=== PATIENT | male | born 1980 | race Caucasian/White ===

== ENCOUNTER 2024-09-28 09:04 | Inpatient (IN) ==
[2024-09-28] MEDS ORDERED: VANCOMYCIN CONSULT ACTIVE PRN (09:22)
--- NOTE | 2024-09-28 09:38 | Emergency Department Note ---
History of Present Illness General Chief complaint: Abdominal Pain Stated complaint: ABD PAIN, TREMORS, ELV HEART RATE, SLIGHT TEMP Time Seen by Provider: 09/28/24 09:12 History of Present Illness Maximum Pain Intensity: 10 This is a 43-year-old male who presents to the emergency department via private vehicle accompanied by 2 corrections officers with complaints of "abdominal infection". I also reviewed the accompanying documentation from the medical [facility]. The patient states that he received an injection into the abdomen on September 21 which was Sublocade. He points to the abdominal wall soft tissues as location. Patient notes that following that he has noted some redness, swelling and pain to the lower abdomen. He states he was started on oral antibiotics, specifically Bactrim as of yesterday. He notes worsening symptoms now to include fever, increased heart rate and feeling unwell. No chest pain or shortness of breath. Patient has history of penicillin allergy causing a rash/hives. Patient notes he had acetaminophen earlier today around 7:30 AM. Home Medications Medication Instructions Recorded Confirmed Type gabapentin 600 mg tablet 600 mg PO TID 09/28/24 09/28/24 History mirtazapine 30 mg tablet 30 mg PO HS 09/28/24 09/28/24 History Allergies Allergy/AdvReac Type Severity Reaction Status Date / Time Penicillins Allergy Severe Hives Unverified 09/28/24 12:26 Past Med/Surg History Problem List (Updated 09/28/24 @ 16:03 by Ernesto Rincon PA-C) Opioid use disorder Sepsis (Acute) Abdominal wall abscess (Acute) Social History Smoking Status: Never smoker Preferred Language: Tamaz[place] Feels Safe at Home: Yes Review of Systems A total of 10 systems reviewed and were otherwise negative Physical Exam Vital Signs Vital Signs - 24 hr 09/28/24 09:08 09/28/24 10:06 09/28/24 10:06 Temperature 37.1 C Temperature Source Temporal Artery Scan Pulse Rate 142 H 116 H Pulse Rate [Apical] 117 H Respiratory Rate 18 19 24 Respiratory Effort / Characteristics Non-Labored Spontaneous Respiratory Depth Normal Blood Pressure 141/87 H Blood Pressure [Left Arm] 125/88 Blood Pressure Mean 105 Blood Pressure Mean [Left Arm] 100 Blood Pressure Position Sitting Pulse Oximetry 95 88 L 88 L Oxygen Delivery Method Room Air Room Air Room Air Oxygen Flow Rate Sepsis Recent Fever Within 48 Hours No Sepsis New/Unexplained Change in Mental Status No Sepsis Action Taken by Nursing No Action Required 09/28/24 10:26 09/28/24 10:28 09/28/24 10:36 Temperature 38.8 C H Temperature Source Oral Pulse Rate 109 H Pulse Rate [Apical] 106 H 109 H Respiratory Rate 14 19 Respiratory Effort / Characteristics Respiratory Depth Blood Pressure Blood Pressure [Left Arm] 130/82 131/88 Blood Pressure Mean Blood Pressure Mean [Left Arm] 98 102 Blood Pressure Position Pulse Oximetry 98 97 Oxygen Delivery Method Nasal Cannula Nasal Cannula Oxygen Flow Rate 2 2 Sepsis Recent Fever Within 48 Hours Sepsis New/Unexplained Change in Mental Status Sepsis Action Taken by Nursing 09/28/24 11:03 09/28/24 11:48 09/28/24 12:05 Temperature Temperature Source Pulse Rate Pulse Rate [Apical] 110 H 108 H 105 H Respiratory Rate 16 15 20 Respiratory Effort / Characteristics Respiratory Depth Blood Pressure Blood Pressure [Left Arm] 117/83 122/84 138/75 Blood Pressure Mean Blood Pressure Mean [Left Arm] 94 96 96 Blood Pressure Position Pulse Oximetry 97 96 97 Oxygen Delivery Method Nasal Cannula Nasal Cannula Nasal Cannula Oxygen Flow Rate 2 2 2 Sepsis Recent Fever Within 48 Hours Sepsis New/Unexplained Change in Mental Status Sepsis Action Taken by Nursing 09/28/24 12:53 09/28/24 13:04 09/28/24 14:03 Temperature Temperature Source Pulse Rate Pulse Rate [Apical] 104 H 102 H 93 H Respiratory Rate 25 H 25 H 17 Respiratory Effort / Characteristics Respiratory Depth Blood Pressure Blood Pressure [Left Arm] 119/71 115/73 109/67 Blood Pressure Mean Blood Pressure Mean [Left Arm] 87 87 81 Blood Pressure Position Pulse Oximetry 95 97 96 Oxygen Delivery Method Nasal Cannula Nasal Cannula Nasal Cannula Oxygen Flow Rate 2 2 2 Sepsis Recent Fever Within 48 Hours Sepsis New/Unexplained Change in Mental Status Sepsis Action Taken by Nursing 09/28/24 14:37 09/28/24 15:00 09/28/24 15:30 Temperature Temperature Source Pulse Rate 94 H Pulse Rate [Apical] 97 H 99 H Respiratory Rate 18 18 Respiratory Effort / Characteristics Respiratory Depth Blood Pressure Blood Pressure [Left Arm] 109/67 119/74 Blood Pressure Mean Blood Pressure Mean [Left Arm] 81 89 Blood Pressure Position Pulse Oximetry 97 97 Oxygen Delivery Method Room Air Room Air Oxygen Flow Rate Sepsis Recent Fever Within 48 Hours Sepsis New/Unexplained Change in Mental Status Sepsis Action Taken by Nursing VITAL SIGNS - Vital signs and nursing notes were reviewed. Tachycardic, mildly hypoxic, otherwise stable. GENERAL -43-year-old male appearing his stated age who is in no acute distress. Communicates well with provider and answers questions appropriately. SKIN -erythema noted to the anterior abdominal wall particularly inferior to the umbilicus and periumbilical with associated induration of the abdomen with mild fluctuance noted. No guarding or rigidity however the area is tender. Purple skin marking pen noted to the abdomen with erythema extending beyond these areas. HEAD - NC/AT. EYES - PERRL with EOMI bilaterally. Sclera anicteric. EARS - No deformities of external structures noted on gross examination bilaterally. NOSE - No epistaxis or purulent drainage noted. MOUTH/OROPHARYNX - Without perioral cyanosis. NECK - Neck with FROM. No nuchal rigidity. LUNGS - Chest wall symmetric without accessory muscle use, intercostals retractions, or central cyanosis. Normal vesicular breath sounds CTA B/L. No wheezes, rales, or rhonchi appreciated. CARDIAC -tachycardic ABDOMEN - Abdominal contour normal without pulsations or visible masses. Skin as above. BS normoactive all four quadrants. No hepatosplenomegaly, or ascites noted. EXTREMITIES - No clubbing or peripheral cyanosis. +5/5 strength noted in UE/LE bilaterally. NEUROLOGIC - Cranial nerves grossly intact. PSYCH -alert, oriented and pleasant on exam Course Administered Medications Discontinued Medications Hydromorphone HCl (Hydromorphone Inj 1 Mg/Ml Syringe) 1 mg IV NOW STA Stop: 09/28/24 10:58 Last Admin: 09/28/24 11:14 Dose: 1 mg Documented By: JANE Hydromorphone HCl (Hydromorphone Inj 0.5 Mg/0.5 Ml Syr) 0.5 mg IV NOW STA Stop: 09/28/24 15:39 Last Admin: 09/28/24 15:43 Dose: 0.5 mg Documented By: HAYLEE Sodium Chloride (Nss) 500 mls @ 427 mls/hr IV .Q1H11M BLADE Stop: 09/28/24 10:40 Last Infusion: 09/28/24 11:16 Dose: Infused Documented By: Admin: 09/28/24 11:13 Dose: 427 mls/hr Documented By: JANE Sodium Chloride (Nss) 1,000 mls @ 999 mls/hr IV .Q1H1M BLADE Stop: 09/28/24 11:30 Last Infusion: 09/28/24 12:24 Dose: Infused Documented By: Admin: 09/28/24 11:14 Dose: 999 mls/hr Documented By: Infusion: 09/28/24 11:14 Dose: Infused Documented By: Admin: 09/28/24 10:03 Dose: 999 mls/hr Documented By: JANE Vancomycin HCl 1,500 mg/ (Sodium Chloride) 530 mls @ 200 mls/hr IV NOW ONE Stop: 09/28/24 12:00 Last Infusion: 09/28/24 13:12 Dose: Infused Documented By: Admin: 09/28/24 10:27 Dose: 200 mls/hr Documented By: Infusion: 09/28/24 10:27 Dose: Infused Documented By: Admin: 09/28/24 10:10 Dose: 200 mls/hr Documented By: JANE Cefepime HCl (Maxipime 2000mg) 2,000 mg in 20 mls @ 5 mls/min IV NOW STA; Protocol Stop: 09/28/24 10:00 Last Admin: 09/28/24 10:27 Dose: 5 mls/min Documented By: JANE Acetaminophen (Ofirmev) 1,000 mg in 100 mls @ 400 mls/hr IV NOW STA Stop: 09/28/24 11:07 Last Admin: 09/28/24 12:24 Dose: Not Given Documented By: JANE Linezolid (Zyvox) 600 mg in 300 mls @ 300 mls/hr IV NOW STA Stop: 09/28/24 11:57 Last Infusion: 09/28/24 14:03 Dose: Infused Documented By: Admin: 09/28/24 12:22 Dose: 300 mls/hr Documented By: ARUN Metronidazole (Flagyl) 500 mg in 100 mls @ 100 mls/hr IV NOW STA Stop: 09/28/24 13:27 Last Infusion: 09/28/24 14:03 Dose: Infused Documented By: Admin: 09/28/24 12:54 Dose: 100 mls/hr Documented By: AVM Ioversol (Optiray 320 100ml) 93 ml IV ONCE ONE Stop: 09/28/24 10:48 Last Admin: 09/28/24 10:47 Dose: 93 ml Documented By: DIMITRIS Critical Care Time I have personally spent about 60 minutes of critical care time in the direct management of this patient. This includes bedside care, interpretation of diagnostic studies, and testing, discussion with consultants, patient, and family members, and other required patient management activities. This 60 minutes is in excess of all separately billable procedures. Medical Decision Making Laboratory Data 09/28/24 09:59 09/28/24 09:59 Lab Results 09/28/24 09/28/24 09/28/24 Range/Units 09:52 09:59 11:04 WBC 26.39 H (4.8-10.8) K/ul RBC 4.16 L (4.70-6.10) M/uL Hgb 13.1 L (14.0-18.0) g/dl Hct 38.5 L (42.0-52.0) % MCV 92.5 (80.0-100.0) fL MCH 31.5 (25.0-34.0) pg MCHC 34.0 (32.0-36.0) g/dL RDW Std Deviation 40.6 (36.4-46.3) fL RDW Coeff of [place] 12.0 (11.5-14.5) % Plt Count 284 (130-400) K/uL MPV 9.8 (9.4-12.4) fL Immature Gran % (Auto) 0.7 % Neut % (Auto) 86.8 % Lymph % (Auto) 3.4 % [place] % (Auto) 8.5 % Eos % (Auto) 0.3 % Baso % (Auto) 0.3 % Neut # (Auto) 22.92 H (1.40-6.50) K/uL Lymph # (Auto) 0.89 L (1.20-3.40) K/uL [place] # (Auto) 2.23 H (0.11-0.59) K/uL Eos # (Auto) 0.07 (0.00-0.50) K/uL Baso # (Auto) 0.09 (0.00-0.20) K/uL Immature Gran # (Auto) 0.19 (0.01-0.20) K/uL Sodium 134 L (136-145) mmol/L Potassium 4.0 (3.5-5.1) mmol/L Chloride 101 (98-107) mmol/L Carbon Dioxide 27 (21-32) mmol/L Anion Gap 6 (3-11) BUN 12 (6-23) mg/dl Creatinine 1.40 (0.6-1.4) mg/dl Est Cr Clr Drug Dosing 73.1 ml/min eGFR 63.17 BUN/Creatinine Ratio 8.6 L (10-20) Glucose 122 H (70-99(Fasting)) mg/dl POC Glucose (70-99) mg/dl Lactate 1.2 (0.4-2.0) mmol/L Calcium 9.6 (8.6-10.3) mg/dl Magnesium 1.8 (1.7-2.4) mg/dl Total Bilirubin 0.4 (0.2-1.0) mg/dl Direct Bilirubin 0.1 (0-0.2) mg/dl AST 20 (13-39) U/L ALT 20 (7-52) U/L Alkaline Phosphatase 58 (34-104) U/L Troponin I High Sens 13.0 (0-20) pg/ml C-Reactive Protein 25.57 H (0-0.5) mg/dl Total Protein 7.7 (6.0-8.3) gm/dl Albumin 4.1 (3.4-5.0) gm/dl Procalcitonin 1.94 H (0-0.5) ng/ml Urine Color Yellow Urine Appearance Clear (Clear) Urine pH 8.0 H (4.5-7.5) Ur Specific [place] 1.015 (1.000-1.030) Urine Protein Trace H (Negative) Urine Glucose (UA) Negative (Negative) Urine Ketones Negative (Negative) Urine Blood Negative (Negative) Urine Nitrite Negative (Negative) Urine Bilirubin Negative (Negative) Urine Urobilinogen Negative (Negative) Ur Leukocyte Esterase Negative (Negative) Urine WBC (Auto) 0-5 (0-5) /hpf Urine RBC (Auto) 0-2 (0-2) /hpf U Hyaline Cast (Auto) 0-2 (0-2) /lpf U Epithel Cells (Auto) 0-2 (0-2) /hpf Urine Bacteria (Auto) None Seen (None Seen) Adenovirus (PCR) Not Detected (NotDetected) B. pertussis DNA (PCR) Not Detected (NotDetected) B.parapertussis DNA PCR Not Detected (NotDetected) C. pneumoniae DNA (PCR) Not Detected (NotDetected) Coronavirus OC43 (PCR) Not Detected (NotDetected) Coronavirus HKU1 (PCR) Not Detected (NotDetected) Coronavirus 229E (PCR) Not Detected (NotDetected) SARS-CoV-2 (PCR) Not Detected (NotDetected) Coronavirus NL63 (PCR) Not Detected (NotDetected) Human Metapneumovir PCR Not Detected (NotDetected) Influenza Type A (PCR) Not Detected (NotDetected) Influenza Type B (PCR) Not Detected (NotDetected) M. pneumoniae (PCR) Not Detected (NotDetected) Parainfluenza 1 (PCR) Not Detected (NotDetected) Parainfluenza 2 (PCR) Not Detected (NotDetected) Parainfluenza 3 (PCR) Not Detected (NotDetected) Parainfluenza 4 (PCR) Not Detected (NotDetected) RSV (PCR) Not Detected (NotDetected) Entero/Rhino (PCR) Not Detected (NotDetected) 09/28/24 09/28/24 Range/Units 13:02 14:07 WBC (4.8-10.8) K/ul RBC (4.70-6.10) M/uL Hgb (14.0-18.0) g/dl Hct (42.0-52.0) % MCV (80.0-100.0) fL MCH (25.0-34.0) pg MCHC (32.0-36.0) g/dL RDW Std Deviation (36.4-46.3) fL RDW Coeff of [place] (11.5-14.5) % Plt Count (130-400) K/uL MPV (9.4-12.4) fL Immature Gran % (Auto) % Neut % (Auto) % Lymph % (Auto) % [place] % (Auto) % Eos % (Auto) % Baso % (Auto) % Neut # (Auto) (1.40-6.50) K/uL Lymph # (Auto) (1.20-3.40) K/uL [place] # (Auto) (0.11-0.59) K/uL Eos # (Auto) (0.00-0.50) K/uL Baso # (Auto) (0.00-0.20) K/uL Immature Gran # (Auto) (0.01-0.20) K/uL Sodium (136-145) mmol/L Potassium (3.5-5.1) mmol/L Chloride (98-107) mmol/L Carbon Dioxide (21-32) mmol/L Anion Gap (3-11) BUN (6-23) mg/dl Creatinine (0.6-1.4) mg/dl Est Cr Clr Drug Dosing ml/min eGFR BUN/Creatinine Ratio (10-20) Glucose (70-99(Fasting)) mg/dl POC Glucose 367 H* 112 H (70-99) mg/dl Lactate (0.4-2.0) mmol/L Calcium (8.6-10.3) mg/dl Magnesium (1.7-2.4) mg/dl Total Bilirubin (0.2-1.0) mg/dl Direct Bilirubin (0-0.2) mg/dl AST (13-39) U/L ALT (7-52) U/L Alkaline Phosphatase (34-104) U/L Troponin I High Sens (0-20) pg/ml C-Reactive Protein (0-0.5) mg/dl Total Protein (6.0-8.3) gm/dl Albumin (3.4-5.0) gm/dl Procalcitonin (0-0.5) ng/ml Urine Color Urine Appearance (Clear) Urine pH (4.5-7.5) Ur Specific [place] (1.000-1.030) Urine Protein (Negative) Urine Glucose (UA) (Negative) Urine Ketones (Negative) Urine Blood (Negative) Urine Nitrite (Negative) Urine Bilirubin (Negative) Urine Urobilinogen (Negative) Ur Leukocyte Esterase (Negative) Urine WBC (Auto) (0-5) /hpf Urine RBC (Auto) (0-2) /hpf U Hyaline Cast (Auto) (0-2) /lpf U Epithel Cells (Auto) (0-2) /hpf Urine Bacteria (Auto) (None Seen) Adenovirus (PCR) (NotDetected) B. pertussis DNA (PCR) (NotDetected) B.parapertussis DNA PCR (NotDetected) C. pneumoniae DNA (PCR) (NotDetected) Coronavirus OC43 (PCR) (NotDetected) Coronavirus HKU1 (PCR) (NotDetected) Coronavirus 229E (PCR) (NotDetected) SARS-CoV-2 (PCR) (NotDetected) Coronavirus NL63 (PCR) (NotDetected) Human Metapneumovir PCR (NotDetected) Influenza Type A (PCR) (NotDetected) Influenza Type B (PCR) (NotDetected) M. pneumoniae (PCR) (NotDetected) Parainfluenza 1 (PCR) (NotDetected) Parainfluenza 2 (PCR) (NotDetected) Parainfluenza 3 (PCR) (NotDetected) Parainfluenza 4 (PCR) (NotDetected) RSV (PCR) (NotDetected) Entero/Rhino (PCR) (NotDetected) Imaging Data Radiologist's Impression: Chest X-Ray 09/28/24 09:23 XR chest 1V portable CLINICAL HISTORY: Sepsis. COMPARISON STUDY: No previous studies for comparison. FINDINGS: Lung volumes are normal. Lungs are clear. There is no pneumothorax or pleural effusion. Cardiac size is normal. Mediastinal contours are normal. There is no evidence for pulmonary edema. IMPRESSION: No acute cardiopulmonary findings. ACT 112: Negative or not required by law. Electronically signed by: Kennedy Pacheco M.D. 09/28/2024 9:39 AM Abdomen/Pelvis CT 09/28/24 09:26 CT OF THE ABDOMEN AND PELVIS WITH CONTRAST CLINICAL HISTORY: Abdominal wall infection following injection. COMPARISON STUDY: KUB August 22, 2008. TECHNIQUE: Following IV administration of 93 mL of Optiray, axial images of the abdomen and pelvis were obtained from the lung bases to the proximal femurs. Images were reviewed in the axial, sagittal, and coronal planes. IV contrast was administered without complication. Automated exposure control was utilized for the study. A dose lowering technique was utilized adhering to the principles of ALARA. CT DOSE: 873.12 mGy.cm FINDINGS: Lung bases are unremarkable. No pneumatosis, free air or portal gas is present. A few subcentimeter hypodense hepatic lesions are likely benign. There is mild biliary ductal dilatation. The pancreatic duct is prominent. No pancreatic lesion is identified. 1.8 cm hypodense splenic lesion is likely benign. There is a 4.7 cm right lower pole renal cyst. Subcentimeter left renal lesion favors a cyst as well. There is no hydronephrosis. There is no evidence for a bowel obstruction. A moderate amount pf stool is present. Extensive inflammation within the subcutaneous tissues extending to the fascia of the left abdominal wall is noted. This involves the majority of the left anterior abdominal wall. There is associated skin thickening and multiple small pockets of fluid within the subcutaneous tissues of the left anterior abdominal wall. Several locules of subcutaneous gas are present. No drainable fluid collection is present. Left rectus abdominis appears unremarkable. No intramuscular fluid collection is identified. Major vasculature is patent. IMPRESSION: 1. Findings consistent with an extensive infectious process of the left anterior abdominal wall with subcutaneous stranding and fluid and skin thickening which extends to the underlying fascia consistent with cellulitis. Multiple small pockets of fluid within the subcutaneous tissues with several locules of gas. This gas could be related to recent injection. However, necrotizing fasciitis could appear similar. Surgical consultation is recommended. 2. Mild biliary ductal dilatation, a nonspecific finding which could be correlated with liver function tests. 3. No bowel obstruction. Moderate amount of stool. ACT 112: Negative or not required by law. Electronically signed by: Kennedy Pacheco M.D. 09/28/2024 11:05 AM MDM Narrative Patient was seen and evaluated as above in room C02. Review was performed of triage nursing notes and vital signs. Patient presents to us today accompanied by 2 corrections officers for evaluation of abdominal wall infection. The patient is quite ill, tachycardic in the 140s on arrival and hypoxic 88%. Patient appears septic. EKG reveals sinus tachycardia at a rate of 117 bpm. QTc 451. QRS 80. No ST elevation on this rhythm tracing. IV access was immediately established. 30/kg IV fluids ordered in addition to broad-spectrum IV antibiotics. Labs reveal leukocytosis 26.39. Anemia noted with hemoglobin of 13.1. Hyponatremia 134. Hyperglycemia 122. Troponin returned within normal range. Procalcitonin is elevated with a normal lactate. Blood culture pending. CRP 25. Urinalysis does not suggest infection. BioFire panel negative. CT scan of the abdomen/pelvis was obtained and does reveal extensive infectious process of the left anterior abdominal wall with subcutaneous stranding and fluid and skin thickening which extends to underlying fascia consistent with cellulitis. I discussed this with the general surgeon, Dr. Kohler came to evaluate the patient. Patient will go to the operative suite for further evaluation and management. I also discussed this with the hospitalist service, Dr. Marlow as well as the risk consulting treasury director Dr. Rodriguez. Please refer to further documentation regarding his stay. Analgesia was ordered during the patient's stay and vital signs were closely monitored. Patient was febrile and I did order acetaminophen but held off as the patient did have this just prior to coming in today. GCS: 15 In the evaluation and treatment of this patient the following differential diagnoses were entertained: Necrotizing fasciitis, cellulitis, appendicitis, abscess, among others Impression & Plan Abdominal wall abscess, Sepsis Discharge Plan Visit Data Chief Complaint: Abdominal Pain Stated Complaint: ABD PAIN, TREMORS, ELV HEART RATE, SLIGHT TEMP ED Provider: Rodri Major ED Midlevel Provider: Ernesto Rincon Discharge Problem: Abdominal wall abscess, Sepsis Patient Disposition: Admitted As Inpatient Condition: Good Discharge Instructions Interventions: ED Discharge Assessment Last Done: 09/28/24 15:46
--- NOTE | 2024-09-28 09:41 | XRay Report ---
XR chest 1V portable CLINICAL HISTORY: Sepsis. COMPARISON STUDY: No previous studies for comparison. FINDINGS: Lung volumes are normal. Lungs are clear. There is no pneumothorax or pleural effusion. Car diac size is normal. Mediastinal contours are normal. There is no evidence for pulmonary edema. IMPRESSION: No acute cardiopulmonary findings. ACT 112: Negative or not required by law. Electronically signed by: Kennedy Pacheco M.D. 09/28/2024 9:39 AM
[2024-09-28] MEDS: SODIUM CHLORIDE 0.9% 1,000 ML IV SCH (10:03)
[2024-09-28] MEDS: VANCOMYCIN HCL 1,500 MG in SODIUM CHLORIDE 0.9% 500 ML IV ONE (10:10)
[2024-09-28 10:15] LABS: Hematocrit (blood only) 38.5 % (42.0-52.0); Hemoglobin 13.1 g/dl (14.0-18.0); Mean Corpuscular Hemoglobin 31.5 pg (25.0-34.0); Mean Corpuscular Volume 92.5 fL (80.0-100.0); Mean Platelet Volume 9.8 fL (9.4-12.4); Platelet Count 284 K/uL (130-400); RDW Standard Deviation 40.6 fL (36.4-46.3); Red Blood Count 4.16 M/uL (4.70-6.10); White Blood Count 26.39 K/ul (4.8-10.8)
[2024-09-28] MEDS: CEFEPIME 2000MG 2,000 MG/20 ML SYR IV STA (10:27)
[2024-09-28 10:33] LABS: Albumin Level 4.1 gm/dl (3.4-5.0); BUN Creatinine Ratio 8.6 (10-20); Bilirubin Direct 0.1 mg/dl (0-0.2); Bilirubin,Total 0.4 mg/dl (0.2-1.0); Calcium 9.6 mg/dl (8.6-10.3); Creatinine Clr Calc Pharmacy 73.1 ml/min; Magnesium 1.8 mg/dl (1.7-2.4); Total Protein 7.7 gm/dl (6.0-8.3)
[2024-09-28 10:40] LABS: Basophils # (auto) 0.09 K/uL (0.00-0.20); Basophils % (auto) 0.3 %; Eosinophils # (auto) 0.07 K/uL (0.00-0.50); Eosinophils % (auto) 0.3 %; Immature Granulocytes # (auto) 0.19 K/uL (0.01-0.20); Immature Granulocytes % (auto) 0.7 %; Lymphocytes # (auto) 0.89 K/uL (1.20-3.40); Lymphocytes % (auto) 3.4 %; Monocytes # (auto) 2.23 K/uL (0.11-0.59); Monocytes % (auto) 8.5 %; Neutrophils # (auto) 22.92 K/uL (1.40-6.50); Neutrophils % (auto) 86.8 %
[2024-09-28] MEDS: OPTIRAY 320 100ml IV ONE (10:47)
[2024-09-28 11:03] LABS: Adenovirus PCR Not Detected (NotDetected); Bordetella parapertussis PCR Not Detected (NotDetected); Bordetella pertussis PCR Not Detected (NotDetected); Chlamydia pneumoniae PCR Not Detected (NotDetected); Coronavirus 229E PCR Not Detected (NotDetected); Coronavirus CoV-2 (COVID19)PCR Not Detected (NotDetected); Coronavirus HKU1 PCR Not Detected (NotDetected); Coronavirus NL63 PCR Not Detected (NotDetected); Coronavirus OC43PCR Not Detected (NotDetected); Human Metapneumovirus PCR Not Detected (NotDetected); Influenza A PCR Not Detected (NotDetected); Influenza B PCR Not Detected (NotDetected); Mycoplasma pneumoniae PCR Not Detected (NotDetected); Parainfluenza Virus 1 PCR Not Detected (NotDetected); Parainfluenza Virus 2 PCR Not Detected (NotDetected); Parainfluenza Virus 3 PCR Not Detected (NotDetected); Parainfluenza Virus 4 PCR Not Detected (NotDetected); Respiratory Syncytial VirusPCR Not Detected (NotDetected); Rhinovirus/Enterovirus PCR Not Detected (NotDetected)
--- NOTE | 2024-09-28 11:03 | Emergency Department Note ---
ED Visit Note ED Physician Supervisory Note & Attestation: I was consulted by the Advanced Practice Provider, Ernesto Rincon PA-C. I personally made/approved the management plan and take responsibility for the patient management. I performed a substantive portion of the visit. This includes the aspects of: Evaluation: Bedside evaluation by me. Patient with large area of swelling tenderness palpation ecchymosis left lower abdomen. No overt crepitus appreciated. Rapid worsening over the last few days. Will note that the erythema starting to spread somewhat past the borders that were written earlier today. Patient is febrile tachycardic with an elevated white blood cell count. MDM: Patient meets criteria for severe sepsis. I have high concern for necrotizing fasciitis and emergent surgical evaluation is indicated. I added in some IV narcotic along with linezolid to the cefepime and vancomycin he is already been receiving. Patient has received roughly 2 L normal saline blood pressure is 130/60. Sepsis resuscitation. 2.5 mL normal saline bolus ordered for actual body weight resuscitation. Blood pressure stable following this Imaging: CT abdomen pelvis with IV contrast. As per my informal informal interpretation. Large area of inflammation with small pockets of gas noted. No significant abscess appreciated. Claim Rep Discussions: Reviewed and Dr. Jennings of general surgery. He evaluated immediately after discussion and will plan to take patient to the OR. Hospitalist service to manage patient medically following or. Rodri Major MD
--- NOTE | 2024-09-28 11:07 | CT Scan Report ---
CT OF THE ABDOMEN AND PELVIS WITH CONTRAST CLINICAL HISTORY: Abdominal wall infection following injection. COMPARISON STUDY: KUB August 22, 2008. TECHNIQUE: Following IV administration of 93 mL of Optiray, axial images of the abdomen and pelvis we re obtained from the lung bases to the proximal femurs. Images were reviewed in the axial, sagittal, and coronal planes. IV contrast was administered without complication. Automated exposure control wa s utilized for the study. A dose lowering technique was utilized adhering to the principles of ALARA . CT DOSE: 873.12 mGy.cm FINDINGS: Lung bases are unremarkable. No pneumatosis, free air or portal gas is present. A few subce ntimeter hypodense hepatic lesions are likely benign. There is mild biliary ductal dilatation. The pa ncreatic duct is prominent. No pancreatic lesion is identified. 1.8 cm hypodense splenic lesion is li chanell benign. There is a 4.7 cm right lower pole renal cyst. Subcentimeter left renal lesion favors a cyst as well. There is no hydronephrosis. There is no evidence for a bowel obstruction. A moderate am ount pf stool is present. Extensive inflammation within the subcutaneous tissues extending to the fas carlos eduardo of the left abdominal wall is noted. This involves the majority of the left anterior abdominal wa ll. There is associated skin thickening and multiple small pockets of fluid within the subcutaneous t issues of the left anterior abdominal wall. Several locules of subcutaneous gas are present. No drain able fluid collection is present. Left rectus abdominis appears unremarkable. No intramuscular fluid collection is identified. Major vasculature is patent. IMPRESSION: 1. Findings consistent with an extensive infectious process of the left anterior abdominal wall with subcutaneous stranding and fluid and skin thickening which extends to the underlying fascia consisten t with cellulitis. Multiple small pockets of fluid within the subcutaneous tissues with several locul es of gas. This gas could be related to recent injection. However, necrotizing fasciitis could appear similar. Surgical consultation is recommended. 2. Mild biliary ductal dilatation, a nonspecific finding which could be correlated with liver functio n tests. 3. No bowel obstruction. Moderate amount of stool. ACT 112: Negative or not required by law. Electronically signed by: Kennedy Pacheco M.D. 09/28/2024 11:05 AM
[2024-09-28] MEDS: SODIUM CHLORIDE 0.9% 500 ML IV SCH (11:13)
[2024-09-28] MEDS: HYDROmorphone INJ 1 MG/ML SYRINGE IV STA (11:14)
[2024-09-28 11:23] LABS: Appearance Urine Clear (Clear); Bacteria Urine Automated None Seen (None Seen); Bilirubin Urine Negative (Negative); Blood Urine Negative (Negative); Cast Urine Automated 0-2 /lpf (0-2); Color Urine Yellow; Epithelial Cell Urine Auto 0-2 /hpf (0-2); Glucose Urine UA Negative (Negative); Ketones Urine Negative (Negative); Leukocyte Esterase Urine Negative (Negative); Nitrite Urine Negative (Negative); Protein Urine Trace (Negative); RBC Urine Automated 0-2 /hpf (0-2); Specific Gravity Urine 1.015 (1.000-1.030); Urobilinogen Urine Negative (Negative); WBC Urine Automated 0-5 /hpf (0-5)
--- NOTE | 2024-09-28 11:56 | Surgery Consultation ---
Date of Consultation September 28, 2024 Assessment & Plan (1) Abdominal wall abscess: NPO broad spectrum abx to OR for I&D possible debridement History of Present Illness History of Present Illness This is a 43-year-old male with LLQ ecchymotic mass after an injection. It began a few days ago and rapidly worsened. The patient is febrile and tachycardic with an elevated white blood cell count. CT scan shows large mass with air and possible fascitis. Allergies Allergy/AdvReac Type Severity Reaction Status Date / Time N Allergy Unknown Uncoded 11/10/02 16:53 NONE Allergy Unknown Uncoded 11/10/02 16:53 PCN Allergy Unknown Uncoded 11/10/02 16:53 Home Medications Medication Instructions Recorded Confirmed Type None (Patient States No Home Meds) ##0 04/05/09 History Propoxyphene-N/Acetaminophen 1 tab PO Q6HR PRN ##20 04/05/09 Rx (Darvocet-N 100 *) Patient History Social History Smoking Status: Never smoker Preferred Language: [place] Feels Safe at Home: Yes Review of Systems Constitutional: + fever; no chills and no anorexia Eyes: no problem reported Ear, Nose, Mouth, Throat: no problem reported Respiratory: no cough and no dyspnea Cardiovascular: no chest pain Gastrointestinal: + abdominal pain; no nausea, no vomiting and no diarrhea/loose stools Genitourinary: no dysuria Integumentary: no problem reported Neurologic: no localized weakness and no generalized weakness Psychiatric: no behavioral changes Hematologic / Lymphatic: no easy bleeding and no easy bruising Physical Exam Constitutional: WD/WN, vitals as above Eyes: PERRL, conjunctivae normal, anicteric sclerae Respiratory: normal respiratory effort, lungs clear to auscultation Cardiovascular: RRR, no murmur, no edema Gastrointestinal (Abdomen): Inspection/Auscultation: + abdomen abnormal to inspection (large mass like swelling with cellulitis in LLQ, minimal fluctuance), abdomen not distended and + abnormal bowel sounds Percussion/Palpation: + abdomen tender and abdomen soft; no guarding and abdomen not rigid Musculoskeletal: Head/Neck/Chest: normocephalic and head atraumatic Skin: no rashes, warm and dry Results & Data Vital Signs (Past 12 Hours) Vital Signs Temp Pulse Pulse Resp BP BP Pulse Ox 09/28/24 11:48 108 H 15 122/84 96 09/28/24 11:03 110 H 16 117/83 97 09/28/24 10:36 38.8 C H 109 H 19 131/88 97 09/28/24 10:28 109 H 09/28/24 10:26 106 H 14 130/82 98 09/28/24 10:06 116 H 24 88 L 09/28/24 10:06 117 H 19 125/88 88 L 09/28/24 09:08 37.1 C 142 H 18 141/87 H 95 O2 Del Method O2 Flow Rate 09/28/24 11:48 Nasal Cannula 2 09/28/24 11:03 Nasal Cannula 2 09/28/24 10:36 Nasal Cannula 2 09/28/24 10:28 09/28/24 10:26 Nasal Cannula 2 09/28/24 10:06 Room Air 09/28/24 10:06 Room Air 09/28/24 09:08 Room Air Diagnostic Findings CT OF THE ABDOMEN AND PELVIS WITH CONTRAST CLINICAL HISTORY: Abdominal wall infection following injection. COMPARISON STUDY: KUB August 22, 2008. TECHNIQUE: Following IV administration of 93 mL of Optiray, axial images of the abdomen and pelvis were obtained from the lung bases to the proximal femurs. Images were reviewed in the axial, sagittal, and coronal planes. IV contrast was administered without complication. Automated exposure control was utilized for the study. A dose lowering technique was utilized adhering to the principles of ALARA. CT DOSE: 873.12 mGy.cm FINDINGS: Lung bases are unremarkable. No pneumatosis, free air or portal gas is present. A few subcentimeter hypodense hepatic lesions are likely benign. There is mild biliary ductal dilatation. The pancreatic duct is prominent. No pancreatic lesion is identified. 1.8 cm hypodense splenic lesion is likely benign. There is a 4.7 cm right lower pole renal cyst. Subcentimeter left renal lesion favors a cyst as well. There is no hydronephrosis. There is no evidence for a bowel obstruction. A moderate amount pf stool is present. Extensive inflammation within the subcutaneous tissues extending to the fascia of the left abdominal wall is noted. This involves the majority of the left anterior abdominal wall. There is associated skin thickening and multiple small pockets of fluid within the subcutaneous tissues of the left anterior abdominal wall. Several locules of subcutaneous gas are present. No drainable fluid collection is present. Left rectus abdominis appears unremarkable. No intramuscular fluid collection is identified. Major vasculature is patent. IMPRESSION: 1. Findings consistent with an extensive infectious process of the left anterior abdominal wall with subcutaneous stranding and fluid and skin thickening which extends to the underlying fascia consistent with cellulitis. Multiple small pockets of fluid within the subcutaneous tissues with several locules of gas. This gas could be related to recent injection. However, necrotizing fasciitis could appear similar. Surgical consultation is recommended. 2. Mild biliary ductal dilatation, a nonspecific finding which could be correlated with liver function tests. 3. No bowel obstruction. Moderate amount of stool.
[2024-09-28] MEDS ORDERED: MEROPENEM 1,000 MG in SYRINGE 0 ML IV SCH (12:15)
[2024-09-28] MEDS ORDERED: CLINDAMYCIN/D5W 900 MG/50 ML BAG IV SCH (12:15)
--- NOTE | 2024-09-28 12:18 | Anesthesiology Consultation ---
Date of Service September 28, 2024 Assessment & Plan Chart Review Chart Review: Acceptable Risk for Surgery and Patient NOT seen in Pre Admission Testing Consults Requested none ASA [id number] Proposed Anesthesia Anesthesia Type: General History Surgery Operation Date: 09/28/24 12:30 Proposed Procedures p Incision and Drainage General - Eugene Jennings MD Height/Weight Height: 6 ft Weight: 80.9 kg Allergies Allergy/AdvReac Type Severity Reaction Status Date / Time N Allergy Unknown Uncoded 11/10/02 16:53 NONE Allergy Unknown Uncoded 11/10/02 16:53 PCN Allergy Unknown Uncoded 11/10/02 16:53 Medications Home Medications Medication Instructions Recorded Confirmed Last Taken None (Patient States No Home Meds) ##0 04/05/09 Unknown Propoxyphene-N/Acetaminophen 1 tab PO Q6HR PRN ##20 04/05/09 Unknown (Darvocet-N 100 *) Exercise / Class Metabolic Activity II 4-5 Yardwork/Stairs/Walk up hill Past Anesthesia History No Hx of Anesthesia Complications and No Family Hx of Anesthesia Complications History of PONV No Hx of PONV and No Hx of Motion Sickness Social History Smoking Status: Never smoker Physical Exam Vital Signs Last Vital Signs Temp 38.8 C H 09/28/24 10:36 Pulse 105 H 09/28/24 12:05 Resp 20 09/28/24 12:05 BP 138/75 09/28/24 12:05 Pulse Ox 97 09/28/24 12:05 O2 Del Method Nasal Cannula 09/28/24 12:05 O2 Flow Rate 2 09/28/24 12:05 Testing Laboratory Results 09/28/24 09:59 09/28/24 09:59 Urine Color Yellow 09/28/24 11:04 Urine Appearance Clear (Clear) 09/28/24 11:04 Urine pH 8.0 (4.5-7.5) H 09/28/24 11:04 Ur Specific [place] 1.015 (1.000-1.030) 09/28/24 11:04 Urine Protein Trace (Negative) H 09/28/24 11:04 Urine Glucose (UA) Negative (Negative) 09/28/24 11:04 Urine Ketones Negative (Negative) 09/28/24 11:04 Urine Nitrite Negative (Negative) 09/28/24 11:04 Ur Leukocyte Esterase Negative (Negative) 09/28/24 11:04 Urine WBC (Auto) 0-5 /hpf (0-5) 09/28/24 11:04 Urine RBC (Auto) 0-2 /hpf (0-2) 09/28/24 11:04 U Hyaline Cast (Auto) 0-2 /lpf (0-2) 09/28/24 11:04 U Epithel Cells (Auto) 0-2 /hpf (0-2) 09/28/24 11:04 Urine Bacteria (Auto) None Seen (None Seen) 09/28/24 11:04 Electrocardiogram Date: 09/28/24 Findings: + ST @ (@ 117) Chest X-Ray Date: 09/28/24 Findings: + NAD
[2024-09-28] MEDS ORDERED: LABETALOL HCL IV 5 MG/ML 20ML IV PRN (12:19)
[2024-09-28] MEDS ORDERED: NALOXONE HCL 0.4 MG/1 ML VIAL/CARP IV PRN (12:19)
[2024-09-28] MEDS ORDERED: ATROPINE SULFATE 0.1 MG/ML 10ML SYR IV PRN (12:19)
[2024-09-28] MEDS ORDERED: ONDANSETRON INJ 2 MG/ML 2 ML VIAL IV PRN ×2 (12:19→16:29)
[2024-09-28] MEDS ORDERED: PROMETHAZINE HCL 6.25 MG in SODIUM CHLORIDE 0.9% 50 ML IV PRN (12:19)
[2024-09-28] MEDS ORDERED: FLUMAZENIL 0.1 MG/1 ML 10 ML VIAL IV PRN (12:19)
--- NOTE | 2024-09-28 12:19 | History & Physical Report ---
Date of Service September 28, 2024 Assessment & Plan (1) Sepsis: Plan: (2) Abdominal wall abscess: (3) Opioid use disorder: Plan 43-year-old healthy man who is admitted with sepsis caused by abscess and cellulitis of the left lower abdominal wall, suspicious for necrotizing SSTI based on CT imaging, exam, labs with severely elevated WBC and CRP, LRINEC 7 which is intermediate # sepsis due to SSTI - Dr. Jennings has been consulted and planning to take him to the OR for I&D possible debridement immediately - he has been been treated with 2500 mL of crystalloid thus far, completed 30 mL/kilogram bolus for sepsis, continue IV fluids - in ED given cefepime, linezolid, 1500 mg vancomycin IV. he reports hives with PCN. Discussed with critical care pharmacist - suspect this is staph (MRSA), could be strep, he does not have risk factors for resistant gram negative infections. Will continue cefepime and linezolid, add metronidazole, option to continue vancomycin - probably ICU after OR. ED contacted rail track maintainer - monitor CBC, CMP, blood cultures pending - likely consult ID postop # OUD -suboxone injection recently home meds: gabapentin, mirtazapine held for the time being History of Present Illness Chief Complaint: lower abdominal wall pain, swelling Primary Care Provider: [facility] 43 y/o no significant medical history brought in from [facility] with abdominal wall pain, swelling, redness. Had a sublocade injection at this site on 09/21. A few days ago began having pain, redness and swelling at the site. He was started on [id number], regardless, he says the site "blew up" over the past 48h with rapid worsening of swelling. He is not having chest pain, dyspnea, nausea/vomiting/diarrhea. He reports a past history of skin infections / abscesses including MRSA. his only home medications are gabapentin and Remeron Allergies Allergy/AdvReac Type Severity Reaction Status Date / Time Penicillins Allergy Severe Hives Unverified 09/28/24 12:26 Home Medications Medication Instructions Recorded Confirmed Type gabapentin 600 mg tablet 600 mg PO TID 09/28/24 09/28/24 History mirtazapine 30 mg tablet 30 mg PO HS 09/28/24 09/28/24 History Past Med/Surg History Problem List (Updated 09/28/24 @ 12:16 by Susan Marlow MD) Opioid use disorder Sepsis Abdominal wall abscess Social History Smoking Status: Never smoker Preferred Language: [place] Feels Safe at Home: Yes Review of Systems Review of Systems: All systems reviewed & are unremarkable except as noted in HPI & below Physical Exam Physical Exam: PHYSICAL EXAMINATION Last 24h vital signs reviewed, see documentation in flowsheet General: comfortable appearing, no distress HEENT: Normocephalic, atraumatic, pupils round and equal, sclerae anicteric, no conjunctival injection, moist mucus membranes Lungs: Normal respiratory effort. Clear to auscultation bilaterally. No RRW Heart: tachycardic hyperdynamic Regular rate and rhythm, no murmurs. No JVD Abdomen: Soft, nontender, generally. Bowel sounds present. there is severe redness and swelling of the left lower abdominal wall, swollen areas about the size of a large orange, patchy erythema extends past the markings present on his abdomen Extremities: No extremity edema. 2+ DP pulses hands and feet are warm and appear well-perfused Neuro: Alert and oriented x 4, face symmetric, moves 4 extremities well Psych: Normal affect and behavior Results & Data Results & Data Vital Signs (Past 12 Hours) Vital Signs Temp Pulse Pulse Resp BP BP Pulse Ox 09/28/24 11:48 108 H 15 122/84 96 09/28/24 11:03 110 H 16 117/83 97 09/28/24 10:36 101.8 F H 109 H 19 131/88 97 09/28/24 10:28 109 H 09/28/24 10:26 106 H 14 130/82 98 09/28/24 10:06 116 H 24 88 L 09/28/24 10:06 117 H 19 125/88 88 L 09/28/24 09:08 98.8 F 142 H 18 141/87 H 95 O2 Del Method O2 Flow Rate 09/28/24 11:48 Nasal Cannula 2 09/28/24 11:03 Nasal Cannula 2 09/28/24 10:36 Nasal Cannula 2 09/28/24 10:28 09/28/24 10:26 Nasal Cannula 2 09/28/24 10:06 Room Air 09/28/24 10:06 Room Air 09/28/24 09:08 Room Air Laboratory Results 09/28/24 09/28/24 09/28/24 Range/Units 11:04 09:59 09:52 WBC 26.39 H (4.8-10.8) K/ul RBC 4.16 L (4.70-6.10) M/uL Hgb 13.1 L (14.0-18.0) g/dl Hct 38.5 L (42.0-52.0) % MCV 92.5 (80.0-100.0) fL MCH 31.5 (25.0-34.0) pg MCHC 34.0 (32.0-36.0) g/dL RDW Std Deviation 40.6 (36.4-46.3) fL RDW Coeff of [place] 12.0 (11.5-14.5) % Plt Count 284 (130-400) K/uL MPV 9.8 (9.4-12.4) fL Immature Gran % (Auto) 0.7 % Neut % (Auto) 86.8 % Lymph % (Auto) 3.4 % [place] % (Auto) 8.5 % Eos % (Auto) 0.3 % Baso % (Auto) 0.3 % Neut # (Auto) 22.92 H (1.40-6.50) K/uL Lymph # (Auto) 0.89 L (1.20-3.40) K/uL [place] # (Auto) 2.23 H (0.11-0.59) K/uL Eos # (Auto) 0.07 (0.00-0.50) K/uL Baso # (Auto) 0.09 (0.00-0.20) K/uL Immature Gran # (Auto) 0.19 (0.01-0.20) K/uL Sodium 134 L (136-145) mmol/L Potassium 4.0 (3.5-5.1) mmol/L Chloride 101 (98-107) mmol/L Carbon Dioxide 27 (21-32) mmol/L Anion Gap 6 (3-11) BUN 12 (6-23) mg/dl Creatinine 1.40 (0.6-1.4) mg/dl Est Cr Clr Drug Dosing 73.1 ml/min eGFR 63.17 BUN/Creatinine Ratio 8.6 L (10-20) Glucose 122 H (70-99(Fasting)) mg/dl Lactate 1.2 (0.4-2.0) mmol/L Calcium 9.6 (8.6-10.3) mg/dl Magnesium 1.8 (1.7-2.4) mg/dl Total Bilirubin 0.4 (0.2-1.0) mg/dl Direct Bilirubin 0.1 (0-0.2) mg/dl AST 20 (13-39) U/L ALT 20 (7-52) U/L Alkaline Phosphatase 58 (34-104) U/L Troponin I High Sens 13.0 (0-20) pg/ml C-Reactive Protein 25.57 H (0-0.5) mg/dl Total Protein 7.7 (6.0-8.3) gm/dl Albumin 4.1 (3.4-5.0) gm/dl Procalcitonin 1.94 H (0-0.5) ng/ml Urine Color Yellow Urine Appearance Clear (Clear) Urine pH 8.0 H (4.5-7.5) Ur Specific [place] 1.015 (1.000-1.030) Urine Protein Trace H (Negative) Urine Glucose (UA) Negative (Negative) Urine Ketones Negative (Negative) Urine Blood Negative (Negative) Urine Nitrite Negative (Negative) Urine Bilirubin Negative (Negative) Urine Urobilinogen Negative (Negative) Ur Leukocyte Esterase Negative (Negative) Urine WBC (Auto) 0-5 (0-5) /hpf Urine RBC (Auto) 0-2 (0-2) /hpf U Hyaline Cast (Auto) 0-2 (0-2) /lpf U Epithel Cells (Auto) 0-2 (0-2) /hpf Urine Bacteria (Auto) None Seen (None Seen) Adenovirus (PCR) Not Detected (NotDetected) B. pertussis DNA (PCR) Not Detected (NotDetected) B.parapertussis DNA PCR Not Detected (NotDetected) C. pneumoniae DNA (PCR) Not Detected (NotDetected) Coronavirus OC43 (PCR) Not Detected (NotDetected) Coronavirus HKU1 (PCR) Not Detected (NotDetected) Coronavirus 229E (PCR) Not Detected (NotDetected) SARS-CoV-2 (PCR) Not Detected (NotDetected) Coronavirus NL63 (PCR) Not Detected (NotDetected) Human Metapneumovir PCR Not Detected (NotDetected) Influenza Type A (PCR) Not Detected (NotDetected) Influenza Type B (PCR) Not Detected (NotDetected) M. pneumoniae (PCR) Not Detected (NotDetected) Parainfluenza 1 (PCR) Not Detected (NotDetected) Parainfluenza 2 (PCR) Not Detected (NotDetected) Parainfluenza 3 (PCR) Not Detected (NotDetected) Parainfluenza 4 (PCR) Not Detected (NotDetected) RSV (PCR) Not Detected (NotDetected) Entero/Rhino (PCR) Not Detected (NotDetected) Diagnostic Findings Chest X-Ray 09/28/24 09:23 XR chest 1V portable CLINICAL HISTORY: Sepsis. COMPARISON STUDY: No previous studies for comparison. FINDINGS: Lung volumes are normal. Lungs are clear. There is no pneumothorax or pleural effusion. Cardiac size is normal. Mediastinal contours are normal. There is no evidence for pulmonary edema. IMPRESSION: No acute cardiopulmonary findings. ACT 112: Negative or not required by law. Electronically signed by: Kennedy Pacheco M.D. 09/28/2024 9:39 AM Abdomen/Pelvis CT 09/28/24 09:26 CT OF THE ABDOMEN AND PELVIS WITH CONTRAST CLINICAL HISTORY: Abdominal wall infection following injection. COMPARISON STUDY: KUB August 22, 2008. TECHNIQUE: Following IV administration of 93 mL of Optiray, axial images of the abdomen and pelvis were obtained from the lung bases to the proximal femurs. Images were reviewed in the axial, sagittal, and coronal planes. IV contrast was administered without complication. Automated exposure control was utilized for the study. A dose lowering technique was utilized adhering to the principles of ALARA. CT DOSE: 873.12 mGy.cm FINDINGS: Lung bases are unremarkable. No pneumatosis, free air or portal gas is present. A few subcentimeter hypodense hepatic lesions are likely benign. There is mild biliary ductal dilatation. The pancreatic duct is prominent. No pancreatic lesion is identified. 1.8 cm hypodense splenic lesion is likely benign. There is a 4.7 cm right lower pole renal cyst. Subcentimeter left renal lesion favors a cyst as well. There is no hydronephrosis. There is no evidence for a bowel obstruction. A moderate amount pf stool is present. Extensive inflammation within the subcutaneous tissues extending to the fascia of the left abdominal wall is noted. This involves the majority of the left anterior abdominal wall. There is associated skin thickening and multiple small pockets of fluid within the subcutaneous tissues of the left anterior abdominal wall. Several locules of subcutaneous gas are present. No drainable fluid collection is present. Left rectus abdominis appears unremarkable. No intramuscular fluid collection is identified. Major vasculature is patent. IMPRESSION: 1. Findings consistent with an extensive infectious process of the left anterior abdominal wall with subcutaneous stranding and fluid and skin thickening which extends to the underlying fascia consistent with cellulitis. Multiple small pockets of fluid within the subcutaneous tissues with several locules of gas. This gas could be related to recent injection. However, necrotizing fasciitis could appear similar. Surgical consultation is recommended. 2. Mild biliary ductal dilatation, a nonspecific finding which could be correlated with liver function tests. 3. No bowel obstruction. Moderate amount of stool. ACT 112: Negative or not required by law. Electronically signed by: Kennedy Pacheco M.D. 09/28/2024 11:05 AM PG Care Time/CCT Total # of Minutes Spent Total Time Spent with Patient: Total time spent is greater than 50% in coordination of care (as documented) at patient's floor/unit and/or counseling patient: Coding Level of Care Code 05501 INT INP/OBS CARE 3/75MIN Diagnoses Sepsis A41.9 Abdominal wall abscess L02.211 Opioid use disorder F11.90
[2024-09-28] MEDS: LINEZOLID 600 MG/300 ML BAG IV STA (12:22)
[2024-09-28] MEDS: ACETAMINOPHEN 1,000 MG/100 ML VIAL IV STA (12:24)
[2024-09-28] MEDS: metroNIDAZOLE 500 MG/100 ML BAG IV STA (12:54)
[2024-09-28] MEDS: HYDROmorphone INJ 0.5 MG/0.5 ML SYR IV STA (15:43)
[2024-09-28] MEDS ORDERED: PROPOFOL IV EMULSION 10 MG/ML 20 ML VIAL IV ONE (15:53)
[2024-09-28] MEDS ORDERED: ONDANSETRON INJ 2 MG/ML 2 ML VIAL ONE (15:53)
[2024-09-28] MEDS ORDERED: DEXAMETHASONE SOD INJ 4 MG/ML VIAL ONE (15:53)
[2024-09-28] MEDS ORDERED: MIDAZOLAM HCL 1 MG/ML 2ML VIAL ONE (15:53)
[2024-09-28] MEDS ORDERED: fentaNYL citrate PF 100 MCG/2 ML VIAL ONE (15:54)
[2024-09-28] MEDS ORDERED: ACETAMINOPHEN 325 MG TAB PO PRN (16:29)
--- NOTE | 2024-09-28 16:29 | Operative Report ---
Post Operative Report Pre & Post Diagnosis Operation Date: 09/28/24 12:30 Pre-Op Diagnosis: Abdominal Wall Abscess Post-Op Diagnosis: Abdominal Wall Abscess I identified the patient and participated in the time-out.: Yes Procedure Operation Date: 09/28/24 12:30 Actual Procedures p Incision and Drainage Deep Wall Abscess - Eugene Jennings MD Surgeon Eugene Jennings MD University Professor none Estimated Blood Loss 20 Findings Consistent with Post-Op Diagnosis Left lower quadrant abscess, no fasciitis. Specimens Intraoperative cultures taken. Anesthesia Type General Complications none Indications This is a 43-year-old male who was seen in the ED after receiving an injection in his left lower quadrant abdominal wall. He has a developing appears to be in abscess, possible fasciitis. There is air and inflammation. We talked in detail with this and recommended an I&D and possible debridement. Description of Procedure Patient was taken to the OR and underwent excellent general LMA anesthesia. His abdominal wall was prepped and draped in normal sterile fashion. A transverse incision was made through the cellulitic mass. Dissection was taken down and a pocket of pus was identified. This was cultured. The pocket was opened deeply along the fascial planes. The fascia was intact and no sign of fasciitis nor foul smell. Once this was irrigated out, a cautery was used to control bleeding. The wound was then packed and a sterile dressing was applied. I attest to the content of the Intraoperative Record and any orders documented therein. Any exceptions are noted below.
[2024-09-28] MEDS ORDERED: PROMETHAZINE 12.5 MG/50.5 ML BAG IV PRN (16:30)
[2024-09-28] MEDS ORDERED: oxyCODONE/ACETAMINOPHEN 5mg/325mg TAB PO PRN (16:30)
[2024-09-28] MEDS: HYDROmorphone INJ 1 MG/ML SYRINGE IV PRN (16:44)
[2024-09-28] MEDS: HYDROmorphone INJ 0.5 MG/0.5 ML SYR IV PRN (17:04)
--- NOTE | 2024-09-28 17:54 | Anesthesiology Progress Note ---
Date of Service September 28, 2024 Anesthesia Post Procedure Vital Signs Vital Signs: Temp Pulse Pulse Resp BP BP Pulse Ox 09/28/24 17:50 100 H 16 123/77 93 09/28/24 17:40 37.4 C 103 H 20 123/78 93 09/28/24 17:30 102 H 21 115/68 93 09/28/24 17:20 103 H 14 128/75 92 09/28/24 17:10 105 H 20 112/72 93 09/28/24 17:00 104 H 14 120/73 99 09/28/24 16:50 103 H 14 123/72 96 09/28/24 16:40 102 H 15 122/74 97 09/28/24 16:33 36.9 C 107 H 15 118/72 99 09/28/24 15:30 99 H 18 119/74 97 09/28/24 15:00 97 H 18 109/67 97 09/28/24 14:37 94 H 09/28/24 14:03 93 H 17 109/67 96 09/28/24 13:04 102 H 25 H 115/73 97 09/28/24 12:53 104 H 25 H 119/71 95 09/28/24 12:05 105 H 20 138/75 97 09/28/24 11:48 108 H 15 122/84 96 09/28/24 11:03 110 H 16 117/83 97 09/28/24 10:36 38.8 C H 109 H 19 131/88 97 09/28/24 10:28 109 H 09/28/24 10:26 106 H 14 130/82 98 09/28/24 10:06 116 H 24 88 L 09/28/24 10:06 117 H 19 125/88 88 L 09/28/24 09:08 37.1 C 142 H 18 141/87 H 95 O2 Del Method O2 Flow Rate 09/28/24 17:50 Nasal Cannula 2 09/28/24 17:40 Nasal Cannula 2 09/28/24 17:30 Nasal Cannula 2 09/28/24 17:20 Nasal Cannula 2 09/28/24 17:10 Room Air 09/28/24 17:00 Oxymask 3 09/28/24 16:50 Oxymask 3 09/28/24 16:40 Oxymask 3 09/28/24 16:33 Oxymask 3 09/28/24 15:30 Room Air 09/28/24 15:00 Room Air 09/28/24 14:37 09/28/24 14:03 Nasal Cannula 2 09/28/24 13:04 Nasal Cannula 2 09/28/24 12:53 Nasal Cannula 2 09/28/24 12:05 Nasal Cannula 2 09/28/24 11:48 Nasal Cannula 2 09/28/24 11:03 Nasal Cannula 2 09/28/24 10:36 Nasal Cannula 2 09/28/24 10:28 09/28/24 10:26 Nasal Cannula 2 09/28/24 10:06 Room Air 09/28/24 10:06 Room Air 09/28/24 09:08 Room Air Pain Intensity Medial Abdomen: Pain Intensity: 5 Transfer of Care Handoff Completed per policy Notes Mental Status: alert / awake / arousable Patient Amnestic to Procedure: Yes Nausea / Vomiting: adequately controlled Pain: adequately controlled Airway Patency, RR, SpO2: stable & adequate BP & HR: stable & adequate Hydration State: stable & adequate Anesthetic Complications: no major complications apparent
[2024-09-28] MEDS: HYDROmorphone INJ 1 MG/ML SYRINGE ONE ×2 (18:43→18:44)
[2024-09-28] MEDS: BUPIVACAINE 0.5 % 5 MG/1 ML MPF 30ML VIAL ONE (18:43)
[2024-09-28] MEDS ORDERED: PROCHLORPERAZINE 5 MG in SYRINGE 4 ML IV PRN (18:54)
[2024-09-28] MEDS: metroNIDAZOLE 500 MG/100 ML BAG IV SCH (20:53)
[2024-09-28] MEDS: CEFEPIME 2000MG 2,000 MG/20 ML SYR IV SCH (20:53)
[2024-09-28] MEDS: oxyCODONE/ACETAMINOPHEN 5mg/325mg TAB PO PRN (20:53)
--- NOTE | 2024-09-28 21:47 | Electrocardiogram Report ---
Test Reason : Blood Pressure : */* mmHG Vent. Rate : 117 BPM Atrial Rate : 117 BPM P-R Int : 144 ms QRS Dur : 80 ms QT Int : 324 ms P-R-T Axes : 75 70 56 degrees QTcB Int : 451 ms Sinus tachycardia Otherwise normal ECG No previous ECGs available Confirmed by Junior Moon ([id number]) on 09/28/2024 9:46:36 PM Referred By: Confirmed By: Junior Moon
[2024-09-28] MEDS: LINEZOLID 600 MG/300 ML BAG IV SCH (22:12)
[2024-09-28] MEDS: GABAPENTIN 600 MG TAB PO SCH (22:16)
[2024-09-29] MEDS: MoRPHine SULFATE 4 MG/ML 1 ML CARP\\VIAL IV PRN (00:19)
[2024-09-29] MEDS ORDERED: GABAPENTIN 600 MG TAB PO SCH (09:00)
--- NOTE | 2024-09-29 09:42 | Hospitalist Progress Note ---
Date of Service September 29, 2024 Assessment & Plan (1) Sepsis: Plan: (2) Abdominal wall abscess: (3) Opioid use disorder: Plan 43-year-old healthy man who is admitted with sepsis caused by abscess and cellulitis of the left lower abdominal wall, suspicious for necrotizing SSTI based on CT imaging, exam, labs with severely elevated WBC and CRP, LRINEC 7 which is intermediate # sepsis due to SSTI - Dr. Jennings s/i OR for I&D/ debridement 09/28/24 - volume resusitated . continue cefepime and linezolid -local wound care and packing # OUD -suboxone injection recently home meds: gabapentin, mirtazapine held for the time being Admission and Anticipated Discharge Date Admission Date: September 28, 2024 Subjective pt still with pain and pressure at the operative site eating ok, advancing diet Physical Exam Physical Exam: cardiac exam is regular lungs are clear abd is soft, tender and firmness only at surgical site Results & Data Results & Data Vital Signs (Past 12 Hours) Vital Signs Temp Pulse Pulse Resp BP Pulse Ox O2 Del Method 09/29/24 07:43 97.7 F 73 16 99/66 L 96 Nasal Cannula 09/29/24 07:02 62 09/29/24 04:17 97.5 F L 71 18 97/58 L 90 Nasal Cannula 09/28/24 23:53 98.1 F 78 18 100/62 90 Room Air 09/28/24 23:31 Nasal Cannula 09/28/24 22:00 85 O2 Flow Rate 09/29/24 07:43 09/29/24 07:02 09/29/24 04:17 2 09/28/24 23:53 09/28/24 23:31 2 09/28/24 22:00 Laboratory Results review cbc marked leukocytosis , preliminary staph seen on wound culture reviewed chemistry discussed case with general surgery PG Care Time/CCT Total # of Minutes Spent Total Time Spent with Patient: Total time spent is greater than 50% in coordination of care (as documented) at patient's floor/unit and/or counseling patient: Coding Level of Care Code 19128 SUB INP/OBS CARE 3/50MIN Diagnoses Sepsis A41.9 Abdominal wall abscess L02.211 Opioid use disorder F11.90
[2024-09-29 10:30] LABS: Hemoglobin 10.6 g/dl (14.0-18.0); Mean Corpuscular Hemoglobin 31.5 pg (25.0-34.0); Mean Corpuscular Hgb Conc 34.2 g/dL (32.0-36.0); Mean Corpuscular Volume 92.3 fL (80.0-100.0); Mean Platelet Volume 10.1 fL (9.4-12.4); Platelet Count 276 K/uL (130-400); RDW Coefficient of Variation 11.5 % (11.5-14.5); RDW Standard Deviation 38.9 fL (36.4-46.3); Red Blood Count 3.36 M/uL (4.70-6.10)
[2024-09-29 10:55] LABS: BUN Creatinine Ratio 18.8 (10-20); Calcium 8.6 mg/dl (8.6-10.3); Creatinine Clr Calc Pharmacy 101.4 ml/min; Potassium 4.2 mmol/L (3.5-5.1)
--- NOTE | 2024-09-29 11:10 | Surgery Progress Note ---
Date of Service September 29, 2024 Assessment & Plan (1) Sepsis: Plan: con't abx begin dressings discharge 1-2 days on oral abx and wound care Admission and Anticipated Discharge Date Admission Date: September 28, 2024 Subjective feels better afebrile Review of Systems Constitutional: no fever and no chills Respiratory: no cough and no dyspnea Cardiovascular: no chest pain Gastrointestinal: + abdominal pain; no nausea and no vomit ing Genitourinary: no dysuria Physical Exam Respiratory: normal respiratory effort, lungs clear to auscultation Cardiovascular: RRR, no murmur, no edema Gastrointestinal (Abdomen): Inspection/Auscultation: normal bowel sounds; abdomen not distended Percussion/Palpation: abdomen soft less cellulitis; packing removed clean wound Musculoskeletal: Head/Neck/Chest: + abnormal head shape and + evidence of head trauma Skin: no rashes, warm and dry Results & Data Vital Signs (Past 12 Hours) Vital Signs Temp Pulse Pulse Resp BP Pulse Ox O2 Del Method 09/29/24 10:34 36.6 C 68 20 98/59 L 93 Room Air 09/29/24 07:43 36.5 C 73 16 99/66 L 96 Nasal Cannula 09/29/24 07:02 62 09/29/24 04:17 36.4 C L 71 18 97/58 L 90 Nasal Cannula 09/28/24 23:53 36.7 C 78 18 100/62 90 Room Air 09/28/24 23:31 Nasal Cannula O2 Flow Rate 09/29/24 10:34 09/29/24 07:43 09/29/24 07:02 09/29/24 04:17 2 09/28/24 23:53 09/28/24 23:31 2
[2024-09-30 07:03] LABS: Hematocrit (blood only) 29.2 % (42.0-52.0); Hemoglobin 10.1 g/dl (14.0-18.0); Mean Corpuscular Hgb Conc 34.6 g/dL (32.0-36.0); Mean Corpuscular Volume 92.4 fL (80.0-100.0); Mean Platelet Volume 10.3 fL (9.4-12.4); Platelet Count 305 K/uL (130-400); RDW Coefficient of Variation 11.9 % (11.5-14.5); RDW Standard Deviation 40.3 fL (36.4-46.3); Red Blood Count 3.16 M/uL (4.70-6.10)
[2024-09-30 08:19] LABS: Calcium 8.2 mg/dl (8.6-10.3); Creatinine Clr Calc Pharmacy 96.6 ml/min; Potassium 4.1 mmol/L (3.5-5.1)
--- NOTE | 2024-09-30 08:49 | Hospitalist Progress Note ---
Date of Service September 30, 2024 Assessment & Plan (1) Sepsis: Plan: (2) Abdominal wall abscess: (3) Opioid use disorder: Plan 43-year-old healthy man who is admitted with sepsis caused by abscess and cellulitis of the left lower abdominal wall, suspicious for necrotizing SSTI based on CT imaging, exam, labs with severely elevated WBC and CRP, LRINEC 7 which is intermediate # sepsis due to skin soft tissue with abscess in abd wall - Dr. Jennings s/i OR for I&D/ debridement 09/28/24 - initial wound culture MSSA, stop cefepime continue linezolid -local wound care and packing requiring parenteral opiates for pain control # OUD -suboxone injection recently home meds: gabapentin, mirtazapine held for the time being Admission and Anticipated Discharge Date Admission Date: September 28, 2024 Subjective pt feels overall improved, less tenderness and pain Physical Exam Physical Exam: abdominal wall with less induration dressing in place Results & Data Results & Data Vital Signs (Past 12 Hours) Vital Signs Temp Pulse Pulse Resp BP Pulse Ox O2 Del Method 09/30/24 07:55 98.1 F 71 16 112/70 93 Room Air 09/30/24 02:56 97.9 F 62 16 94/56 L 93 Room Air 09/29/24 22:52 98.1 F 72 16 100/62 93 Room Air 09/29/24 22:00 73 Laboratory Results review cbc improved but persistent leukocytosis cultures mssa reviewed chemistry PG Care Time/CCT Total # of Minutes Spent Total Time Spent with Patient: Total time spent is greater than 50% in coordination of care (as documented) at patient's floor/unit and/or counseling patient: Coding Level of Care Code 97962 SUB INP/OBS CARE 3/50MIN Diagnoses Sepsis A41.9 Abdominal wall abscess L02.211 Opioid use disorder F11.90
[2024-09-30] MEDS: MoRPHine SULFATE 2 MG/ML CARP IV PRN (09:20)
--- NOTE | 2024-09-30 10:51 | Surgery Progress Note ---
Date of Service September 30, 2024 Assessment & Plan (1) Sepsis: Plan: con't abx, culture with staph aureus daily dressing changes discharge 1-2 days on oral abx and wound care Discussed with Dr. Jennings who agrees with above. Admission and Anticipated Discharge Date Admission Date: September 28, 2024 Subjective feeling good incisional pain improving and controlled, no increase in pain tolerating diet urinating without difficulty nursing coming to change dressing/wound packing no fevers or chills Physical Exam Constitutional: WD/WN, vitals as above cooperative and comfortable; no acute distress and not ill appearing Respiratory: normal respiratory effort; no respiratory distress Gastrointestinal (Abdomen): Inspection/Auscultation: abdomen normal to inspection; abdomen not distended Percussion/Palpation: + abdomen tender (mild at LLQ wound site) and abdomen soft; no guarding, abdomen not rigid and abdomen not firm LLQ wound with dressing intact, bloody 4x4 but no active bleeding, no surrounding cellulitis Skin: no rashes, warm and dry Psychiatric: Orientation: alert and oriented x 3 Results & Data Vital Signs (Past 12 Hours) Vital Signs Temp Pulse Resp BP Pulse Ox O2 Del Method 09/30/24 07:55 36.7 C 71 16 112/70 93 Room Air 09/30/24 02:56 36.6 C 62 16 94/56 L 93 Room Air 09/29/24 22:52 36.7 C 72 16 100/62 93 Room Air Laboratory Results 09/30/24 09/29/24 Range/Units 06:30 10:09 WBC 14.80 H (4.8-10.8) K/ul RBC 3.16 L (4.70-6.10) M/uL Hgb 10.1 L (14.0-18.0) g/dl Hct 29.2 L (42.0-52.0) % MCV 92.4 (80.0-100.0) fL MCH 32.0 (25.0-34.0) pg MCHC 34.6 (32.0-36.0) g/dL RDW Std Deviation 40.3 (36.4-46.3) fL RDW Coeff of [place] 11.9 (11.5-14.5) % Plt Count 305 (130-400) K/uL MPV 10.3 (9.4-12.4) fL Sodium 139 137 (136-145) mmol/L Potassium 4.1 4.2 (3.5-5.1) mmol/L Chloride 107 107 (98-107) mmol/L Carbon Dioxide 29 26 (21-32) mmol/L Anion Gap 3 4 (3-11) BUN 18 19 (6-23) mg/dl Creatinine 1.06 1.01 D (0.6-1.4) mg/dl Est Cr Clr Drug Dosing 96.6 101.4 ml/min eGFR 88.20 93.46 BUN/Creatinine Ratio 17.0 18.8 (10-20) Glucose 93 141 H (70-99(Fasting)) mg/dl Calcium 8.2 L 8.6 (8.6-10.3) mg/dl Microbiology 09/28/24 16:13 Gram Stain - Final Abdomen Aerobic and Anaerobic Culture - Preliminary Staphylococcus aureus 09/28/24 11:04 Aerobic Blood Culture - Preliminary Blood No growth in Aerobic bottle after 24 hours. Anaerobic Blood Culture - Preliminary No growth in Anaerobic bottle after 24 hours. 09/28/24 09:59 Aerobic Blood Culture - Preliminary Blood No growth in Aerobic bottle after 24 hours. Anaerobic Blood Culture - Preliminary No growth in Anaerobic bottle after 24 hours.
[2024-09-30 15:19] VITALS: RESP 16
[2024-09-30 20:05] VITALS: TEMP 98.1
[2024-10-01 07:36] VITALS: BP 118/69; PULSE 70; O2SAT 95
--- NOTE | 2024-10-01 11:41 | Discharge Summary ---
Discharge Summary Date of Service October 01, 2024 Principal Dx & Hospital Course #1 = Principal Diagnosis (1) Sepsis: (2) Abdominal wall abscess: (3) Opioid use disorder: Plan 43-year-old healthy man who is admitted with sepsis caused by abscess and cellulitis of the left lower abdominal wall, suspicious for necrotizing SSTI based on CT imaging, exam, labs with severely elevated WBC and CRP, LRINEC 7 which is intermediate # sepsis due to skin soft tissue with abscess in abd wall - Dr. Jennings s/i OR for I&D/ debridement 09/28/24 - initial wound culture MSSA, complete additional week of bactril -local wound care and packing until defect is closed requiring opiates for pain control # OUD -suboxone injection recently home meds: gabapentin, mirtazapine Admission HPI Per Admitting Provider 43 y/o no significant medical history brought in from [facility] with abdominal wall pain, swelling, redness. Had a sublocade injection at this site on 09/21. A few days ago began having pain, redness and swelling at the site. He was started on tmp-smx, regardless, he says the site "blew up" over the past 48h with rapid worsening of swelling. He is not having chest pain, dyspnea, nausea/vomiting/diarrhea. in the OR report is was not clearly stated that a "suboxone pod was recovered" He reports a past history of skin infections / abscesses including MRSA. his only home medications are gabapentin and Remeron Discharge Exam wound induration has lessened, Discharge Plan Discharge Items [facility] Reason For Visit: SEPSIS, ABSCESS Discharge Diagnosis: abdominal wall abscess s/p I&D Condition on Discharge: Good Activity: Per Instructions section Activity Comment: no submersion bathing Non-emergency contact: Primary Care Provider Call non-emergency contact if: your symptoms worsen Follow-up/Referrals: PCP,NO [Physician] - Diet: Regular Addtl Attending Provider Instructions: remove packing, wash wound, and replace packing daily until no longer able to pack pack wound with sterile material,we are using 4x4's but as it gets smaller you can use 1/2 inch string packing, after packing cover with a dry sterile dressing control pain with dressing changes by using meds about an hour before complete antibiotic for one week Pending Studies at Discharge: No Stand-Alone Forms: My [facility] Skilled Items Patient informed of condition?: Yes Discharge Level of Care: Other Communicable Disease: No Discharge Prognosis: Stable Lines: None Urinary Catheter: No Medications and DC Order Prescriptions: New sulfamethoxazole-trimethoprim [Bactrim DS] 800-160 mg tablet 1 tab PO BID Qty: 20 0RF Continued gabapentin 600 mg Tablet 600 mg PO TID mirtazapine 30 mg Tablet 30 mg PO HS Discharge Orders: Discharge Order (Routine); Ordered 10/01/24 Ordered By: Bryon Chapman Admission Data Admit Date/Time: 09/28/24 16:30 Attending Provider: Bryon Chapman Admit Provider: Eugene Jennings Primary Care Provider: [facility] Other Providers: Susan Marlow Hospital Stay Data Consultations 09/28/24 11:42 ED Decision to Admit Stat Procedures Performed Operation Date: 09/28/24 12:30 Actual Procedures p Incision and Drainage Deep Wall Abscess - Eugene Jennings MD Diagnostic Imagining Performed 09/28/24 09:26 CT abd pelvis IV con only Stat Pending Results Patient Have Any Pending Studies at Discharge: No Discharge Instructions Given to Patient (Per Discharging Provider) remove packing, wash wound, and replace packing daily until no longer able to pack pack wound with sterile material,we are using 4x4's but as it gets smaller you can use 1/2 inch string packing, after packing cover with a dry sterile dressing control pain with dressing changes by using meds about an hour before complete antibiotic for one week Total Time Total Time Spent Total Time Spent (In Minutes): greater than 30 minutes requires including discussion with residential medical staff for hand off Coding Level of Care Code 37560 INP/OBS DISCH >30 MIN Diagnoses Sepsis A41.9 Abdominal wall abscess L02.211 Opioid use disorder F11.90
== END 2024-10-01 13:03 | DRG 867 ==
LOC: ED 09:04 → OR 15:48 → 2S 16:30 → SUATTDRO 16:30 → 3W 09-30 14:56